=== PATIENT | female | born 1945 | race Caucasian/White ===

== ENCOUNTER 2018-01-26 09:53 | Day surgery (SDC) | payer MEDICARE, OTHER ==
[2018-01-25 16:59] LABS: BASOPHILS % (AUTO) 0.3 % (0-1); EOSINOPHILS # (AUTO) 0.2 X10'3 (0-0.9); EOSINOPHILS % (AUTO) 3.3 % (0-6); HEMATOCRIT 44.8 % (35.0-45.0); HEMOGLOBIN 15.1 g/dl (12.0-16.0); LYMPHOCYTES # (AUTO) 1.7 X10'3 (1.1-4.8); LYMPHOCYTES % (AUTO) 28.4 % (21-51); MEAN CORPUSCULAR HEMOGLOBIN 32.5 PG (27.0-31.0); MEAN CORPUSCULAR HGB CONC 33.6 % (33.0-36.5); MEAN CORPUSCULAR VOLUME 96.7 FL (78-98); MEAN PLATELET VOLUME 9.2 FL (7.4-10.4); MONOCYTES # (AUTO) 0.6 X10'3 (0-0.9); MONOCYTES % (AUTO) 9.4 % (2-12); NEUTROPHILS # (AUTO) 3.6 X10'3 (1.8-7.7); NEUTROPHILS % (AUTO) 58.6 % (42-75); PLATELET COUNT 234 X10'3 (140-440); RED BLOOD COUNT 4.63 X10'6 (4.20-5.60); RED CELL DISTRIBUTION WIDTH 13.7 % (11.5-14.5); WHITE BLOOD COUNT 6.2 X10'3 (4.5-11.0)
[2018-01-25 17:13] LABS: INR 0.9 INR; PARTIAL THROMBOPLASTIN TIME 25 SECONDS (22-32); PROTHROMBIN TIME 9.8 SECONDS (9.0-12.0)
[2018-01-25 17:17] LABS: ALANINE AMINOTRANSFERASE 18 U/L (12-78); ALBUMIN 3.9 G/DL (3.4-5.0); ALBUMIN/GLOBULIN RATIO 1.3 (1.1-1.5); ALKALINE PHOSPHATASE 59 IU/L (46-116); ANION GAP 9 (8-16); ASPARTATE AMINO TRANSFERASE 12 U/L (10-37); BILIRUBIN,TOTAL 0.4 MG/DL (0.1-1.0); BLOOD UREA NITROGEN 22 MG/DL (7-18); BUN/CREATININE RATIO 26.5 (6.6-38.0); CALCIUM 10.3 MG/DL (8.5-10.1); CHLORIDE 103 MMOL/L (99-107); CREATININE 0.83 MG/DL (0.40-0.90); GLUCOSE 91 MG/DL (70-104); POTASSIUM 3.2 MMOL/L (3.5-5.1); SODIUM 141 MMOL/L (135-145); TOTAL CARBON DIOXIDE 29.5 MMOL/L (24-32); eGFR 67 ML/MIN
[2018-01-26] VITALS (11 sets, daily range): BP systolic 111–142; BP diastolic 70–83
[~2018-01-26] VITALS: Ht 154.9 cm; Wt 88.3 kg
[2018-01-26] MEDS ORDERED: dextrose ORAL solution 15 GM/59 ML bottle PO PRN ×2 (10:25)
[2018-01-26] MEDS ORDERED: normal saline 1000ml 1,000 ML IV SCH (10:25)
[2018-01-26] MEDS ORDERED: nitroGLYCERIN 0.4mg SUBLingual tab SL PRN (10:25)
[2018-01-26] MEDS ORDERED: LORazepam 0.5 MG tablet PO PRN (10:25)
[2018-01-26] MEDS ORDERED: insulin Lispro (HumaLOG) vial - multi-dose SQ SCH (10:25)
[2018-01-26] MEDS ORDERED: glucagon, human recombinant 1mg kit SUBCUT PRN (10:25)
[2018-01-26] MEDS ORDERED: diphenhydrAMINE 25mg capsule PO PRN (10:25)
[2018-01-26] MEDS ORDERED: dextrose 50%-water 50ml dispensing syringe IV PRN ×2 (10:25)
[2018-01-26] MEDS ORDERED: ATOR40TA PO (10:52)
[2018-01-26] MEDS ORDERED: OSC500T PO (10:52)
[2018-01-26] MEDS ORDERED: METF500T PO (10:52)
[2018-01-26] MEDS ORDERED: LOSA100T15 PO (10:52)
[2018-01-26] MEDS ORDERED: BUPR300T53 PO (10:52)
[2018-01-26] MEDS ORDERED: CHOL50004 PO (10:52)
[2018-01-26] MEDS ORDERED: ASPI81TA52 PO (10:52)
[2018-01-26] MEDS ORDERED: HYDR12.5 PO (10:52)
[2018-01-26] MEDS ORDERED: AMLO5TAB PO (10:52)
[2018-01-26] MEDS ORDERED: OMEP40CA37 PO (10:52)
[2018-01-26] MEDS ORDERED: BIOT5000 PO (10:52)
[2018-01-26] MEDS ORDERED: ALEN70TA48 PO (10:52)
[2018-01-26] MEDS ORDERED: midazolam 2 mg/2 ml injection ONE ×2 (12:05→12:56)
[2018-01-26] MEDS ORDERED: iohexol 350MG/ML 100ml bottle IV ONE (12:06)
[2018-01-26] MEDS ORDERED: fentaNYL/PF 50MCG/1 ML 2ML syringe ONE (12:06)
[2018-01-26] MEDS ORDERED: iohexol 350 MG/ML 50ML vial IV ONE (12:06)
[2018-01-26] MEDS ORDERED: LIDOcaine 1% (10mg/ml)w/preservative injection 20ml MDV ONE (12:07)
[2018-01-26] MEDS: potassium Cl 20 mEq SR tablet PO PRN ×2 (12:26→16:49)
[2018-01-26] MEDS ORDERED: HYDROcodone/acetaminophen 10/325mg tab PO PRN (15:25)
[2018-01-26] MEDS ORDERED: HYDROcodone/acetaminophen 5mg/325mg tablet PO PRN (15:25)
[2018-01-26] MEDS ORDERED: OXAZEpam 15mg capsule PO PRN (15:25)
[2018-01-26] MEDS ORDERED: ondansetron/PF 4mg/2ml inj IV PRN (15:25)
[2018-01-26] MEDS ORDERED: proCHLORperazine 10 MG/2 ml inj IV PRN (15:25)
[2018-01-26] MEDS ORDERED: insulin glargine (Lantus) pen - multi-dose SQ SCH (21:00)
== END 2018-01-26 19:00 | disposition home or self-care (01) ==
LOC: SSTAY O 09:53
PROVIDERS: ATTEND Internal Medicine Cardiovascular Disease
DX: I25.10 Atherosclerotic heart disease of native coronary artery without angina pectoris (principal); I10 Essential (primary) hypertension; E78.5 Hyperlipidemia, unspecified; K21.9 Gastro-esophageal reflux disease without esophagitis; G47.33 Obstructive sleep apnea (adult) (pediatric); M81.0 Age-related osteoporosis without current pathological fracture; E11.9 Type 2 diabetes mellitus without complications; I25.2 Old myocardial infarction; F32.9 Major depressive disorder, single episode, unspecified; Z87.440 Personal history of urinary (tract) infections; Z96.641 Presence of right artificial hip joint; Z98.41 Cataract extraction status, right eye; Z98.42 Cataract extraction status, left eye; Z72.89 Other problems related to lifestyle; Z79.82 Long term (current) use of aspirin; Z79.84 Long term (current) use of oral hypoglycemic drugs; Z79.899 Other long term (current) drug therapy; Z98.890 Other specified postprocedural states
CPT/HCPCS: 36415; 71046; 80053; 82948; 85025; 85610; 85730; 93005; 93458; 99152; 99153; A6257; C1760; C1769; J1644; J2001; J2250; J3010; J7030; Q0163; Q9967; A4620; J1815